=== PATIENT | male | born 1970 | race Caucasian/White ===

== ENCOUNTER 2021-11-02 06:54 | Emergency (ER) | payer BC ==
[~2021-11-02] VITALS: Ht 172.7 cm; Wt 81.8 kg
[2021-11-02 06:58] VITALS: BP 176/100
[2021-11-02] MEDS ORDERED: predniSONE 20 mg tablet PO ONE (07:50)
[2021-11-02] MEDS ORDERED: acetaminophen 325mg tablet PO ONE (07:50)
[2021-11-02] MEDS ORDERED: BACL-11 PO (07:59)
[2021-11-02] MEDS ORDERED: PRED20TA PO (07:59)
[2021-11-02] MEDS ORDERED: DIPH-735 PO (07:59)
[2021-11-02] MEDS ORDERED: ACET-1025 PO (07:59)
== END 2021-11-02 08:18 | disposition home or self-care (01) ==
LOC: ER 06:55
DX: M54.42 Lumbago with sciatica, left side (principal); M54.10 Radiculopathy, site unspecified; G89.29 Other chronic pain; Z88.8 Allergy status to other drugs, medicaments and biological substances
CPT/HCPCS: 99283; J7512